=== PATIENT | female | born 1995 | race Caucasian/White ===

== ENCOUNTER 2017-12-01 04:40 | Inpatient (IN) | payer OTHER ==
[~2017-12-01 04:40] MED LIST: BUTORPHANOL TARTRATE 1 MG/ML VIAL IVPB ONE; DEXTROSE 5%-LACTATED RINGERS 1,000 ML IV SCH; PROMETHAZINE HCL 25 MG/1 ML VIAL IVPB ONE
[2017-12-01] MEDS ORDERED: BUTORPHANOL TARTRATE 1 MG/ML VIAL ONE ×2 (05:30)
[2017-12-01] MEDS ORDERED: PROMETHAZINE HCL 25 MG/1 ML VIAL ONE (05:30)
[2017-12-01 05:51] LABS: BASO % 0.2 % (0-2.0); EOS % 0.9 % (0-4.5); HEMATOCRIT 39.6 % (32.4-45.2); HEMOGLOBIN 13.5 GM/dL (10.7-15.3); LYMPH % 20.3 % (8-40); MCHC 34.1 g/dl (32.0-36.0); MEAN CELL VOLUME 85.1 fl (80-96); MEAN PLT VOLUME 10.6 fl (7.5-11.1); MONO % 5.8 % (3.8-10.2); NEUT % 72.8 % (42.8-82.8); PLATELET COUNT 163 K/MM3 (134-434); RBC 4.65 M/mm3 (3.60-5.2); RDW 14.5 % (11.6-15.6)
[2017-12-01 05:59] VITALS: BMI 29.5
[2017-12-01 06:05] LABS: INR 1.03 (0.82-1.09); PROTHROMBIN TIME (PATIENT) 11.6 SEC (9.7-13.0)
[2017-12-01 06:08] LABS: ACTIVATED PTT 24.3 SECONDS (25.2-36.5)
[2017-12-01 06:25] LABS: ANION GAP 11 (8-16); BLOOD UREA NITROGEN 8 mg/dL (7-18); CALCIUM 9.1 mg/dL (8.5-10.1); CHLORIDE 108 mmol/L (98-107); CO2 21 mmol/L (21-32); CREATININE 0.5 mg/dL (0.55-1.02); GLUCOSE,RANDOM 96 mg/dL (74-106); POTASSIUM 3.8 mmol/L (3.5-5.1); SODIUM 140 mmol/L (136-145)
[2017-12-01] MEDS ORDERED: OXYTOCIN 20 UNITS in 0.9% NS 20 UNIT/1,000 ML INFUS.BAG IV ONE (06:43)
--- NOTE | 2017-12-01 07:27 | PN ---
Progress Note (short form) - Note Progress Note: cx full 100 vx 2+ fhr cat 1, regular contraction, AROM, clear
--- NOTE | 2017-12-01 07:31 | HP ---
Past Medical History - Primary Care Physician PCP:: Clarence Looney - Admission Chief Complaint: 40 weeks, labor History of Present Illness: 22 yo f , 40.2 weeks, labor, no rom, no bleeding , cx 4 cm 80 vx -1 mi, fhr cat 1, regular contraction History Source: Patient Limitations to Obtaining History: No Limitations - Past Medical History ...: 2 ...Para: 0 ...Term: 0 ...: 0 ...Spon : 0 ...Induced : 1 ...Multiple Gestation: 0 ...LMP: 02/22/17 ... Weeks Gestation by Dates: 40.2 ...EDC by Dates: 11/29/17 ...EDC by Sono: 11/29/17 - Past Surgical History Hx Myomectomy: No Hx Transabdominal Cerclage: No - Smoking History Smoking history: Never smoked Have you smoked in the past 12 months: No - Alcohol/Substance Use Hx Alcohol Use: No - Social History Usual Living Arrangement: Yes: With Spouse History of Recent Travel: No Home Medications - Allergies Allergies/Adverse Reactions: Allergies Allergy/AdvReac Type Severity Reaction Status Date / Time No Known Drug Allergies Allergy Verified 12/01/17 05:55 shrimp AdvReac Intermediate Rash Uncoded 12/01/17 05:16 - Home Medications Home Medications: Ambulatory Orders Ferrous Sulfate [Feosol] 325 mg PO DAILY 12/01/17 Vit/Iron Fum/Folic AC [ Tablet] 1 tablet PO DAILY 12/01/17 Review of Systems - Review of Systems Constitutional: reports: No Symptoms Eyes: reports: No Symptoms HENT: reports: No Symptoms Neck: reports: No Symptoms Cardiovascular: reports: No Symptoms Respiratory: reports: No Symptoms Gastrointestinal: reports: No Symptoms Genitourinary: reports: No Symptoms Breasts: reports: No Symptoms Reported Musculoskeletal: reports: No Symptoms Integumentary: reports: No Symptoms Neurological: reports: No Symptoms Endocrine: reports: No Symptoms Hematology/Lymphatic: reports: No Symptoms Psychiatric: reports: No Symptoms Physical Exam - Maternity Vital Signs: Vital Signs Temperature 98.3 F 12/01/17 06:00 Pulse Rate 84 12/01/17 06:00 Respiratory Rate 18 12/01/17 06:00 Blood Pressure 110/62 12/01/17 06:00 O2 Sat by Pulse Oximetry (%) Constitutional: Yes: Well Nourished, No Distress, Calm Eyes: Yes: WNL, Conjunctiva Clear, EOM Intact HENT: Yes: WNL, Atraumatic, Normocephalic Neck: Yes: WNL, Supple, Trachea Midline Cardiovascular: Yes: WNL, Regular Rate and Rhythm Breast(s): Yes: WNL - Abdominal Exam/OB Fundal Height: 40 Number of Fetuses: Single Presentation: Vertex Contractions: Yes Regularity: Regular Intensity: Mod/Strong Monitor Mode: External Heart Rate Location: [facility] Category: I Accelerations: Uniform Decelerations: None - Vaginal Exam/OB Vaginal Bleediing: Bloody Show Speculum Exam: No Dilatation (cm): 4 cm Effacement (%): 80 Amniotic Membrane Status: Intact Presentation: Vertex/Position Station: -1 - Physical Exam Musculoskeletal: Yes: WNL Extremities: Yes: WNL Edema: Yes Edema: LLE: Trace, RLE: Trace Deep Tendon Reflex Grade: Normal +2 Psychiatric: Yes: WNL - Labs Lab Results: CBC, BMP 12/01/17 05:20 12/01/17 05:20 Hemorrhage Risk Assessment - Risk Factors Medium Risk Factors: Yes: None High Risk Factors: Yes: Active bleeding on admission, None Risk Score: 0 Risk Level: Low Risk Problem List - Problems (1) Post term over 40 weeks Code(s): O48.0 - POST-TERM (2) Labor established Code(s): IHA0001 - Assessment/Plan admit for vaginal delivery FH pain management
[2017-12-01] MEDS ORDERED: WITCH HAZEL 50% (TUCKS) 40 PAD/JAR PAD TP PRN (08:29)
[2017-12-01] MEDS ORDERED: METHYLERGONOVINE MALEATE 0.2 MG/1 ML AMP IM PRN (08:29)
[2017-12-01] MEDS ORDERED: BISACODYL 10 MG SUPP.RECT RC PRN (08:29)
[2017-12-01] MEDS ORDERED: BENZOCAINE 28 GM HEMORRHOIDAL OINTMENT TP PRN (08:29)
[2017-12-01] MEDS ORDERED: BENZOCAINE 20% 57 GM BOTTLE TP PRN (08:29)
[2017-12-01] MEDS ORDERED: IBUPROFEN 600 MG TABLET (FP) PO PRN (08:29)
[2017-12-01] MEDS ORDERED: ACETAMINOPHEN 325 MG TABLET (FP) PO PRN (08:29)
[2017-12-01] MEDS: D5W-LR W/ 20 UNITS OXYTOCIN 20 UNIT/1,000 ML INFUS.BAG IV SCH ×2 (08:30→13:00)
[2017-12-01] MEDS ORDERED: oxyCODONE HCL 5 MG TABLET PO PRN (08:31)
[2017-12-01 08:59] LABS: ARTERIAL BLD GAS O2 SATURATION 32.9 % (90-98.9); ARTERIAL BLOOD GAS PCO2 49.2 mmHg (35-45); ARTERIAL BLOOD GAS PO2 19.9 mmHg (80-100); ARTERIAL BLOOD GAS pH 7.27 (7.35-7.45)
[2017-12-01 09:04] LABS: VENOUS PC02 45.1 mmHg (38-52); VENOUS PH 7.3 (7.32-7.42); VENOUS PO2 30.9 mmHg (28-48)
[2017-12-01] MEDS: FERROUS SO4 325 MG TABLET (FP) PO SCH ×2 (10:33→22:05)
[2017-12-01] MEDS: PRENATAL VITAMINS W/ FOLIC ACID TABLET (FP) PO SCH (10:33)
[2017-12-01] MEDS ORDERED: METHYLERGONOVINE MALEATE 0.2 MG/1 ML AMP IM ONE (11:20)
[2017-12-01] MEDS ORDERED: OXYTOCIN 20 UNITS in 0.9% NS 20 UNIT/1,000 ML INFUS.BAG IV SCH (13:00)
--- NOTE | 2017-12-02 08:20 | PN ---
Post Progress Note - Subjective Subjective: c/o cramps Post Day: 1 Type of Delivery: Vital Signs: Vital Signs Temperature 98.0 F 12/02/17 06:00 Pulse Rate 83 12/02/17 06:00 Respiratory Rate 18 12/02/17 06:00 Blood Pressure 110/69 12/02/17 06:00 O2 Sat by Pulse Oximetry (%) 100 12/01/17 09:43 Breast Exam: Yes: Soft, Other (plans to BF ). No: Engorged Uterus: Yes: Fundus Firm, Fundus below umbilicus, Non-tender Lochia: Yes: Rubra Lochia, amount: Moderate Extremities: Yes: Calves non-tender Perineum: Yes: Episiotomy Activity: Ambulating - Labs Labs: CBC WBC 10.0 K/mm3 (4.0-10.0) 12/01/17 05:20 RBC 4.65 M/mm3 (3.60-5.2) 12/01/17 05:20 Hgb 13.5 GM/dL (10.7-15.3) 12/01/17 05:20 Hct 39.6 % (32.4-45.2) 12/01/17 05:20 MCV 85.1 fl (80-96) 12/01/17 05:20 MCH 29.0 pg (25.7-33.7) 12/01/17 05:20 MCHC 34.1 g/dl (32.0-36.0) 12/01/17 05:20 RDW 14.5 % (11.6-15.6) 12/01/17 05:20 Plt Count 163 K/MM3 (134-434) 12/01/17 05:20 MPV 10.6 fl (7.5-11.1) 12/01/17 05:20 Absolute Neuts (auto) 7.3 # 12/01/17 05:20 Neutrophils % 72.8 % (42.8-82.8) 12/01/17 05:20 Lymphocytes % 20.3 % (8-40) 12/01/17 05:20 Monocytes % 5.8 % (3.8-10.2) 12/01/17 05:20 Eosinophils % 0.9 % (0-4.5) 12/01/17 05:20 Basophils % 0.2 % (0-2.0) 12/01/17 05:20 Nucleated RBC % 0 % (0-0) 12/01/17 05:20 Problem List - Problems (1) Normal vaginal delivery Code(s): O80 - ENCOUNTER FOR FULL-TERM UNCOMPLICATED DELIVERY (2) follow-up Code(s): Z39.2 - ENCOUNTER FOR ROUTINE FOLLOW-UP Assessment/Plan stable Plan : repeat cbc today
[2017-12-02 08:29] LABS: BASO % 0.3 % (0-2.0); EOS % 2.2 % (0-4.5); HEMATOCRIT 31.3 % (32.4-45.2); HEMOGLOBIN 10.8 GM/dL (10.7-15.3); LYMPH % 22.1 % (8-40); MCH 29.4 pg (25.7-33.7); MCHC 34.5 g/dl (32.0-36.0); MEAN CELL VOLUME 85.4 fl (80-96); MEAN PLT VOLUME 10.2 fl (7.5-11.1); MONO % 6.1 % (3.8-10.2); NEUT % 69.3 % (42.8-82.8); PLATELET COUNT 149 K/MM3 (134-434); RBC 3.66 M/mm3 (3.60-5.2); RDW 14.6 % (11.6-15.6); WHITE BLOOD COUNT 9.8 K/mm3 (4.0-10.0)
[2017-12-02] MEDS ORDERED: DIPHTH,PERTUSS(ACELL),TET 0.5 ML DISP.SYRIN IM ONE (10:00)
[2017-12-02] MEDS: FERROUS SO4 325 MG TABLET (FP) PO SCH ×2 (10:14→21:16)
[2017-12-02] MEDS: PRENATAL VITAMINS W/ FOLIC ACID TABLET (FP) PO SCH (10:14)
[2017-12-02] MEDS ORDERED: SENNOSIDES/DOCUSATE COMBO (SENNA PLUS) TABLET (UD) PO PRN (22:00)
[2017-12-03 08:25] VITALS: BP 116/70; PULSE 80; TEMP 98.7
[2017-12-03] MEDS: PRENATAL VITAMINS W/ FOLIC ACID TABLET (FP) PO SCH (09:47)
[2017-12-03] MEDS: FERROUS SO4 325 MG TABLET (FP) PO SCH (09:47)
--- NOTE | 2017-12-03 11:40 | DS ---
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: Vital Signs Temperature 98.7 F 12/03/17 08:22 Pulse Rate 80 12/03/17 08:22 Respiratory Rate 18 12/03/17 08:22 Blood Pressure 116/70 12/03/17 08:22 O2 Sat by Pulse Oximetry (%) 100 12/01/17 09:43 Constitutional: Yes: Well Nourished Eyes: Yes: Conjunctiva Clear HENT: Yes: Atraumatic Neck: Yes: Supple Cardiovascular: Yes: Regular Rate and Rhythm Respiratory: Yes: Regular Gastrointestinal: Yes: Normal Bowel Sounds ...Rectal Exam: Yes: WNL Pelvis: Yes: WNL External Genitalia: Yes: Normal Vaginal Exam: Yes: Normal Cervix: Yes: Normal Uterus: Yes: Firm ....Post : Yes: Uterus firm Breast(s): Yes: WNL Musculoskeletal: Yes: WNL Extremities: Yes: WNL Neurological: Yes: Alert, Oriented ...Motor Strength: WNL Psychiatric: Yes: Alert, Oriented Labs: CBC, BMP 12/02/17 07:40 12/01/17 05:20 Delivery - Delivery Type of Anesthesia: Local Episiotomy/Laceration: Midline EBL (cc): 300 Delivery, Single - Stages of Labor Date 1st Stage Initiatied: 12/01/17 Time 1st Stage Initiated: 01:00 Date 2nd Stage Initiated: 12/01/17 Time 2nd Stage Initiated: 06:40 Date of Delivery: 12/01/17 Time of Delivery: 08:09 Time Placenta Delivered: 08:25 - 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 Present: [place]: Neil Caputo Gender: Male Weight: 7 lb Position: Left, OA Total Hours ROM (Hrs/Mins): 1hr - 1 Minute Total Score: 9 5 Minutes Total Score: 9 - [place] Feeding Plan Initial Plan: Elected not to breastfeed exclusively throughout hospitalization Discharge Summary Reason For Visit: ADMIT LABOR Current Active Problems Labor established (Acute) Normal vaginal delivery (Acute) Post term over 40 weeks (Acute) follow-up (Acute) Procedures: Principal: Normal spontaneous vaginal delivery Hospital Course: Routine Condition: Critical - Instructions Diet, Activity, Other Instructions: call and schedule appointment with [phone],4 weeks for exam.if fever severe bleeding or pain call md. Disposition: HOME - Home Medications Comprehensive Discharge Medication List: Ambulatory Orders Ferrous Sulfate [Feosol] 325 mg PO DAILY 12/01/17 Vit/Iron Fum/Folic AC [ Tablet] 1 tablet PO DAILY 12/01/17
== END 2017-12-03 12:00 | disposition home or self-care (01) | DRG 560 ==
LOC: EDBD 04:40 → JLDR 04:40 → J3W 09:48
PROVIDERS: ADMIT Obstetrics & Gynecology; ATTEND Obstetrics & Gynecology
PROC: 10E0XZZ Delivery of Products of Conception, External Approach (ICD-10-PCS; principal; 2017-12-01)
PROC: 0W8NXZZ Division of Female Perineum, External Approach (ICD-10-PCS; 2017-12-01)
DX: O48.0 Post-term pregnancy (principal); Z3A.40 40 weeks gestation of pregnancy; Z37.0 Single live birth
CPT/HCPCS: 36415; 36600; 59409; 80048; 82803; 85025; 85610; 85730; 86593; 86850; 86900; 86901; 90715